=== PATIENT | female | born 1985 | race Two or more races ===

== ENCOUNTER 2023-03-09 10:00 | Inpatient (IN) | payer OTHER ==
[2023-03-09 11:41] VITALS: BMI 33.3
[2023-03-09 12:13] LABS: BASO % 0.2 % (0-2.0); EOS % 0.5 % (0-4.5); HEMATOCRIT 37.9 % (32.4-45.2); HEMOGLOBIN 12.3 GM/dL (10.7-15.3); LYMPH % 20.2 % (8-40); MCH 28.4 pg (25.7-33.7); MCHC 32.4 g/dl (32.0-36.0); MEAN CELL VOLUME 87.8 fl (80-96); MEAN PLT VOLUME 9.1 fl (7.5-11.1); MONO % 6.7 % (3.8-10.2); NEUT % 72.4 % (42.8-82.8); PLATELET COUNT 197 10^3/uL (134-434); RBC 4.32 M/mm3 (3.60-5.2); RDW 21.1 % (11.6-15.6); WHITE BLOOD COUNT 7.3 K/mm3 (4.0-10.0)
[2023-03-09 12:19] LABS: INR 0.88 (0.83-1.09); PROTHROMBIN TIME (PATIENT) 10.2 SEC (9.7-13.0)
[2023-03-09 12:21] LABS: ACTIVATED PTT 27.2 SECONDS (25.2-36.5)
[2023-03-09 12:30] LABS: ANISOCYTOSIS 1+; MACROCYTOSIS 0
[2023-03-09 12:42] LABS: POTASSIUM 3.9 mmol/L (3.5-5.1)
[2023-03-09 12:44] LABS: CALCIUM 8.7 mg/dL (8.5-10.1)
[2023-03-09 12:45] LABS: BLOOD UREA NITROGEN 7.4 mg/dL (7-18)
[2023-03-09 12:48] LABS: CREATININE 0.4 mg/dL (0.55-1.3)
[2023-03-09] MEDS ORDERED: OXYTOCIN 30 UNITS in 0.9% NS 30 UNIT/500 ML INFUS.BAG IVPB ONE (12:52)
[2023-03-09] MEDS ORDERED: DEXTROSE 5%-LACTATED RINGERS 1,000 ML IV SCH (13:15)
[2023-03-09] MEDS ORDERED: OXYTOCIN 30 UNITS in 0.9% NS 30 UNIT/500 ML INFUS.BAG IVPB SCH (13:30)
[2023-03-09] MEDS ORDERED: D5W-LR W/ 20 UNITS OXYTOCIN 20 UNIT/1,000 ML INFUS.BAG IV SCH (13:30)
[2023-03-09 13:33] LABS: HIV INTERPRETATION NEGATIVE (NEGATIVE)
[2023-03-09] MEDS ORDERED: DEXTROSE 5%-WATER - 1,000 ML IV SCH (13:50)
[2023-03-09] MEDS ORDERED: MEPERIDINE HCL 25 MG/ML VIAL ONE (17:59)
[2023-03-09] MEDS ORDERED: PROMETHAZINE HCL 25 MG/1 ML VIAL ONE (18:03)
[2023-03-09] MEDS ORDERED: PROMETHAZINE HCL 25 MG/1 ML VIAL IVPB ONE (18:30)
[2023-03-09] MEDS ORDERED: MEPERIDINE HCL 25 MG/ML VIAL IVPB ONE (18:30)
[2023-03-09] MEDS ORDERED: FENTANYL/BUPIVACAINE/NS/PF - PCEA - 50 ML DISP.SYRIN EP ONE (22:16)
[2023-03-09] MEDS ORDERED: BUPIVACAINE HCL/PF 0.25% (2.5MG/ML) 10 ML VIAL ONE (22:19)
[2023-03-09] MEDS ORDERED: LIDOCAINE HCL/EPINEPHRINE/PF 10 ML VIAL ONE (22:19)
[2023-03-09] MEDS ORDERED: LIDOCAINE 1%/EPI 1:100000 (20 ML MULTI DOSE VIAL) ONE (22:19)
[2023-03-09] MEDS ORDERED: NALOXONE HCL 0.4 MG/ML VIAL IVPUSH PRN (22:41)
[2023-03-09] MEDS ORDERED: ELECTROLYTE-148 SOLN 1,000 ML IV SCH (22:45)
[2023-03-09] MEDS ORDERED: FENTANYL/BUPIVACAINE/NS/PF - PCEA - 50 ML DISP.SYRIN EP SCH (22:45)
[2023-03-09] MEDS ORDERED: OXYTOCIN 20 UNITS in 0.9% NS 20 UNIT/1,000 ML INFUS.BAG IV ONE (23:42)
[2023-03-09] MEDS ORDERED: OXYTOCIN 20 UNITS in 0.9% NS 20 UNIT/1,000 ML INFUS.BAG IV SCH (23:45)
[2023-03-09] MEDS ORDERED: BISACODYL 10 MG SUPP.RECT RC PRN (23:58)
[2023-03-09] MEDS ORDERED: METHYLERGONOVINE MALEATE 0.2 MG/1 ML AMP IM PRN (23:58)
[2023-03-09] MEDS ORDERED: BENZOCAINE 20% 57 GM BOTTLE TP PRN (23:58)
[2023-03-09] MEDS ORDERED: ACETAMINOPHEN 325 MG TABLET (FP) PO PRN (23:58)
[2023-03-09] MEDS ORDERED: WITCH HAZEL 50% (TUCKS) 40 PAD/JAR PAD TP PRN (23:58)
[2023-03-09] MEDS ORDERED: BENZOCAINE 28 GM HEMORRHOIDAL OINTMENT TP PRN (23:58)
[2023-03-09] MEDS ORDERED: oxyCODONE HCL 5 MG TABLET PO PRN (23:58)
[2023-03-10] MEDS: IBUPROFEN 600 MG TABLET (FP) PO PRN ×4 (03:06→20:08)
[2023-03-10 08:18] LABS: BASO % 0.2 % (0-2.0); EOS % 0.2 % (0-4.5); HEMATOCRIT 35.1 % (32.4-45.2); LYMPH % 15.8 % (8-40); MCH 27.7 pg (25.7-33.7); MCHC 31.4 g/dl (32.0-36.0); MEAN PLT VOLUME 9.1 fl (7.5-11.1); MONO % 5.9 % (3.8-10.2); NEUT % 77.9 % (42.8-82.8); PLATELET COUNT 167 10^3/uL (134-434); RBC 3.98 M/mm3 (3.60-5.2); RDW 20.9 % (11.6-15.6)
[2023-03-10] MEDS: PRENATAL VITAMINS W/ FOLIC ACID TABLET (FP) PO SCH (09:29)
[2023-03-10] MEDS: FERROUS SO4 325 MG TABLET (FP) PO SCH (09:30)
[2023-03-10] MEDS ORDERED: SENNOSIDES/DOCUSATE COMBO (SENNA PLUS) TABLET (UD) PO PRN (22:00)
[2023-03-10 22:34] VITALS: RESP 16
[2023-03-11 09:02] VITALS: BP 119/71; PULSE 80; TEMP 98.2
[2023-03-11] MEDS: PRENATAL VITAMINS W/ FOLIC ACID TABLET (FP) PO SCH (09:43)
[2023-03-11] MEDS: FERROUS SO4 325 MG TABLET (FP) PO SCH (09:43)
== END 2023-03-11 12:05 | disposition home or self-care (01) | DRG 560 ==
LOC: JLDR 10:00 → J3W 03-10 02:45
PROVIDERS: ADMIT Obstetrics & Gynecology; ATTEND Obstetrics & Gynecology
PROC: 10E0XZZ Delivery of Products of Conception, External Approach (ICD-10-PCS; principal; 2023-03-09)
DX: O32.6XX0 Maternal care for compound presentation, not applicable or unspecified (principal); Z3A.40 40 weeks gestation of pregnancy; Z37.0 Single live birth
CPT/HCPCS: 36415; 80048; 85025; 85610; 85730; 86780; 86850; 86900; 86901; 87389